=== PATIENT | female | born 1970 | race Hispanic/Latino ===

== ENCOUNTER 2017-05-06 09:51 | Emergency (ER) | payer SELFPAY ==
[2017-05-06 10:11] VITALS: BP 106/65
--- NOTE | 2017-05-06 13:24 | Emergency Department Report ---
- General Chief Complaint: Upper Respiratory Infection Stated Complaint: ASTHMA/COUGH Time Seen by Provider: 05/06/17 12:50 Source: patient Mode of arrival: Ambulatory Limitations: No Limitations - History of Present Illness Initial Comments: 46-year-old female past medical history asthma, smoker presents with complaint of 5 days of worsening cough, fever, chills, body aches. Denies sore throat, states she has had some runny nose. Denies earache. States she still actively smoking. States she is having greenish yellow sputum. Has been using some over -the-counter medicines with minimal relief of her cough. States she came to the ED for assessment last night but eloped. Patient speaking in full sentences no audible wheezing or stridor. Patient states she ran out of her albuterol inhaler yesterday. States she was wheezing yesterday but does not feel that she is wheezing today. MD Complaint: fever, cough Onset/Timin -: days(s) Severity: moderate Associated Symptoms: fever, cough Treatments Prior to Arrival: Ibuprofen, "cold medicine" - Related Data Home Medications Medication Instructions Recorded Confirmed Last Taken ALBUTEROL Inhaler [Proair] 2 puff IH QID PRN 05/06/17 05/06/17 Unknown Previous Rx's Medication Instructions Recorded Last Taken Type ALBUTEROL Inhaler [ProAir HFA 1 puff IH Q4H PRN #1 inha 05/06/17 Unknown Rx Inhaler] Azithromycin [Zithromax Z-ANYA] 250 mg PO QDAY #6 tablet 05/06/17 Unknown Rx Brompheniramine/Pseudoephed/Dm 118 ml PO Q6H PRN #1 bottle 05/06/17 Unknown Rx [Bromfed Dm Cough Syrup] Naproxen [Naprosyn TAB] 500 mg PO BID PRN #25 tablet 05/06/17 Unknown Rx Prednisone [predniSONE 10 mg 10 mg PO .TAPER #1 tab.ds.pk 05/06/17 Unknown Rx (6-Day Pack, 21 Tabs)] Allergies Allergy/AdvReac Type Severity Reaction Status Date / Time No Known Allergies Allergy Unverified 05/06/17 10:12 ED Review of Systems ROS: Stated complaint: ASTHMA/COUGH Other details as noted in HPI Constitutional: denies: chills, fever Eyes: denies: eye pain, eye discharge, vision change ENT: denies: ear pain, throat pain Respiratory: cough. denies: shortness of breath, wheezing Cardiovascular: denies: chest pain, palpitations Endocrine: no symptoms reported Gastrointestinal: denies: abdominal pain, nausea, diarrhea Genitourinary: denies: urgency, dysuria, discharge Musculoskeletal: denies: back pain, joint swelling, arthralgia Skin: denies: rash, lesions Neurological: denies: headache, weakness, paresthesias Psychiatric: denies: anxiety, depression Hematological/Lymphatic: denies: easy bleeding, easy bruising ED Past Medical Hx - Past Medical History Hx Asthma: Yes - Surgical History Hx Appendectomy: Yes - Social History Smoking Status: Current Every Day Smoker Substance Use Type: None - Medications Home Medications: Home Medications Medication Instructions Recorded Confirmed Last Taken Type ALBUTEROL Inhaler [ProAir HFA 1 puff IH Q4H PRN #1 inha 05/06/17 Unknown Rx Inhaler] ALBUTEROL Inhaler [Proair] 2 puff IH QID PRN 05/06/17 05/06/17 Unknown History Azithromycin [Zithromax Z-ANYA] 250 mg PO QDAY #6 tablet 05/06/17 Unknown Rx Brompheniramine/Pseudoephed/Dm 118 ml PO Q6H PRN #1 bottle 05/06/17 Unknown Rx [Bromfed Dm Cough Syrup] Naproxen [Naprosyn TAB] 500 mg PO BID PRN #25 tablet 05/06/17 Unknown Rx Prednisone [predniSONE 10 mg 10 mg PO .TAPER #1 tab.ds.pk 05/06/17 Unknown Rx (6-Day Pack, 21 Tabs)] ED Physical Exam - General Limitations: No Limitations General appearance: alert, in no apparent distress - Head Head exam: Present: atraumatic, normocephalic - Eye Eye exam: Present: normal appearance, PERRL, EOMI - ENT ENT exam: Present: mucous membranes moist - Neck Neck exam: Present: normal inspection, full ROM - Respiratory Respiratory exam: Present: normal lung sounds bilaterally (no rhonchi , very very mild wheezing right lung field). Absent: respiratory distress - Cardiovascular Cardiovascular Exam: Present: regular rate, normal rhythm. Absent: systolic murmur, diastolic murmur, rubs, gallop - GI/Abdominal GI/Abdominal exam: Present: soft, normal bowel sounds - Extremities Exam Extremities exam: Present: normal inspection - Back Exam Back exam: Present: normal inspection - Neurological Exam Neurological exam: Present: alert, oriented X3 - Psychiatric Psychiatric exam: Present: normal affect, normal mood - Skin Skin exam: Present: warm, dry, intact, normal color. Absent: rash ED Course Vital Signs 05/06/17 10:06 Temperature 98.1 F Pulse Rate 72 Respiratory 18 Rate Blood Pressure 106/65 O2 Sat by Pulse 98 Oximetry ED Medical Decision Making - Medical Decision Making A/P: Acute bronchitis, reactive airway disease 1-naproxen, Bromfed, prednisone Dosepak, Z-Anya, albuterol refill 2- Primary care doctor follow-up 3-I advised patient to return to the ED for any fevers chills worsened cough or shortness of breath despite using these medicines Critical care attestation.: If time is entered above; I have spent that time in minutes in the direct care of this critically ill patient, excluding procedure time. ED Disposition Clinical Impression: Acute bronchitis Qualifiers: Bronchitis organism: unspecified organism Qualified Code(s): J20.9 - Acute bronchitis, unspecified Reactive airway disease Qualifiers: Asthma severity: mild intermittent Asthma complication type: uncomplicated Qualified Code(s): J45.20 - Mild intermittent asthma, uncomplicated Disposition: DC- TO HOME OR SELFCARE Is pt being admited?: No Does the pt Need Aspirin: No Condition: Stable Instructions: Acute Bronchitis (ED), Reactive Airways Disease (ED) Prescriptions: ALBUTEROL Inhaler [ProAir HFA Inhaler] 1 puff IH Q4H PRN #1 inha PRN Reason: Wheezing Azithromycin [Zithromax Z-ANYA] 250 mg PO QDAY #6 tablet Brompheniramine/Pseudoephed/Dm [Bromfed Dm Cough Syrup] 118 ml PO Q6H PRN #1 bottle PRN Reason: Cough Naproxen [Naprosyn TAB] 500 mg PO BID PRN #25 tablet PRN Reason: Fever Prednisone [predniSONE 10 mg (6-Day Pack, 21 Tabs)] 10 mg PO .TAPER #1 tab.ds.pk Referrals: [facility] [Outside] - 3-5 Days [facility] [Outside] - 3-5 Days Forms: Work/School Release Form(ED) Time of Disposition: 13:25
== END 2017-05-06 13:43 | disposition home or self-care (01) ==
LOC: ED 09:51
DX: J45.909 Unspecified asthma, uncomplicated (principal); J20.9 Acute bronchitis, unspecified; F17.210 Nicotine dependence, cigarettes, uncomplicated
CPT/HCPCS: 99282